=== PATIENT | female | born 1940 | race Caucasian/White ===

== ENCOUNTER 2018-10-08 06:22 | Day surgery (SDC) | payer MEDICARE ==
[~2018-10-08] VITALS: Ht 162.6 cm; Wt 77.1 kg
[~2018-10-08 06:22] MED LIST: AMLODIPINE5 MG PO; FLUZONE SPLT1 M1 IM; MELOXICAM15 MG PO; MOBIC PO; NO HOME MEDS; SINGULAIR10 MG PO; VESICARE10 MG PO
[2018-10-08 09:02] VITALS: BP 133/75
== END 2018-10-08 09:20 | disposition home or self-care (01) ==
LOC: ENDO 06:22
PROVIDERS: ATTEND Surgery
PROC: 0DBN8ZX Excision of Sigmoid Colon, Via Natural or Artificial Opening Endoscopic, Diagnostic (ICD-10-PCS; principal; 2018-10-08)
DX: Z12.11 Encounter for screening for malignant neoplasm of colon (principal); K63.5 Polyp of colon; K64.4 Residual hemorrhoidal skin tags; Q43.8 Other specified congenital malformations of intestine; K57.30 Diverticulosis of large intestine without perforation or abscess without bleeding; Z80.0 Family history of malignant neoplasm of digestive organs; Z86.010 Personal history of colon polyps

== ENCOUNTER → 2021-07-13 | Outpatient (REF) | payer MEDICARE ==
[2021-07-13 09:33] LABS: HEMATOCRIT 42.5 % (37.0-47.0); HEMOGLOBIN 13.2 g/dl (12.0-16.0); MEAN CELL VOLUME 88.9 fL CALC (80.0-100.0); MEAN CORPUSCULAR HGB 27.6 pG CALC (26.0-32.0); MEAN CORPUSCULAR HGB CONC 31.1 g/dL CAL (32.0-36.0); RED BLOOD COUNT 4.78 mill/uL (4.20-5.60); RED CELL DISTRI WIDTH 14.4 % (11.5-15.5)
== END | disposition home or self-care (01) ==
LOC: LAB 09:05
PROVIDERS: ATTEND Internal Medicine
DX: E53.8 Deficiency of other specified B group vitamins (principal)

== ENCOUNTER 2023-03-12 08:08 | Day surgery (SDC) | payer MEDICARE ==
[~2023-03-12] VITALS: Ht 162.6 cm; Wt 74.8 kg
[~2023-03-12 08:08] MED LIST changes: +ARNUITY EL50 MCG/ACT; +MELOXICAM7.5 MG PO; +NORVASC5 M1 PO; +OMEPRAZOLE10 MG PO; +PEPCID20 MG PO; +TOPROL XL25 M1 PO
[2023-03-12 10:48] VITALS: BP 137/70
== END 2023-03-12 10:45 | disposition home or self-care (01) ==
LOC: ENDO 08:08 → ORM 08:45 → ENDO 08:45
PROVIDERS: ATTEND Surgery
PROC: 0DBN8ZX Excision of Sigmoid Colon, Via Natural or Artificial Opening Endoscopic, Diagnostic (ICD-10-PCS; principal; 2023-03-12)
DX: Z12.11 Encounter for screening for malignant neoplasm of colon (principal); K57.30 Diverticulosis of large intestine without perforation or abscess without bleeding; K63.5 Polyp of colon; K64.8 Other hemorrhoids; I10 Essential (primary) hypertension; Z86.010 Personal history of colon polyps; Z80.0 Family history of malignant neoplasm of digestive organs